=== PATIENT | male | born 1955 | race Caucasian/White ===

== ENCOUNTER 2021-05-12 07:04 | Day surgery (SDC) | payer MEDICARE, OTHER ==
[2021-05-09 15:57] LABS: BASOPHILS % (AUTO) 0.6 % (0-1); EOSINOPHILS # (AUTO) 0.1 X10'3 (0-0.9); EOSINOPHILS % (AUTO) 2.2 % (0-6); LYMPHOCYTES # (AUTO) 1.6 X10'3 (1.1-4.8); MEAN CORPUSCULAR HEMOGLOBIN 30.4 PG (27.0-31.0); MEAN CORPUSCULAR HGB CONC 33.8 g/dL (33.0-36.5); MEAN CORPUSCULAR VOLUME 89.9 FL (78-98); MEAN PLATELET VOLUME 7.5 FL (7.4-10.4); MONOCYTES # (AUTO) 0.4 X10'3 (0-0.9); MONOCYTES % (AUTO) 6.6 % (2-12); NEUTROPHILS # (AUTO) 3.2 X10'3 (1.8-7.7); NEUTROPHILS % (AUTO) 60.6 % (42-75); PRE OP HEMATOCRIT 47.3 % (42.0-52.0); PRE OP PLATELET COUNT 169 X10'3 (140-440); RED BLOOD COUNT 5.26 X10'6 (4.70-6.10); RED CELL DISTRIBUTION WIDTH 13.1 % (11.5-14.5)
[2021-05-09 16:26] LABS: ALBUMIN/GLOBULIN RATIO 1.3 (1.1-1.5); ALKALINE PHOSPHATASE 82 IU/L (46-116); BLOOD UREA NITROGEN 21 MG/DL (7-18); BUN/CREATININE RATIO 29.2 (5.4-32.0); CALCIUM 8.8 MG/DL (8.5-10.1); CHLORIDE 101 MMOL/L (99-107); CREATININE 0.72 MG/DL (0.60-1.10); PRE OP ALT 24 U/L (30-65); PRE OP ANION GAP 11 (8-16); PRE OP AST 18 U/L (10-37); PRE OP BILIRUB, TOTAL 1.8 MG/DL (0.0-1.0); PRE OP GLUCOSE 112 MG/DL (70-104); PRE OP POTASSIUM 3.8 MMOL/L (3.4-5.1); PRE OP SODIUM 139 MMOL/L (135-145); TOTAL CARBON DIOXIDE 27.4 MMOL/L (24-32); TOTAL PROTEIN 7.2 G/DL (6.4-8.2); eGFR > 90 ML/MIN
[~2021-05-12] VITALS: Ht 188 cm; Wt 86.4 kg
[~2021-05-12 07:04] MED LIST: NO HOME MEDS; cefazolin/dext.iso 2gm/50ml IV ONE; famotidine 20mg tablet PO ONE; ringers solution, lacted 1,000 ML IV SCH
[2021-05-12 07:15] VITALS: BP 134/80
[2021-05-12] MEDS ORDERED: LIDOcaine 1% (10mg/ml)w/preservative inj. 20ml MDV ONE ×2 (08:29→08:30)
[2021-05-12] MEDS ORDERED: BUPIVAcaine 0.5% inj/PF 30 ML ONE (08:29)
[2021-05-12] MEDS ORDERED: ondansetron/PF 4mg/2ml inj ONE ×2 (08:30→09:21)
[2021-05-12] MEDS ORDERED: propofol inj 20 ML IV ONE (08:30)
[2021-05-12] MEDS ORDERED: rocuronium 10mg/ml inj IV ONE (08:30)
[2021-05-12] MEDS ORDERED: LIDOcaine 2% (20mg/ml) 5ml vial ONE (08:30)
[2021-05-12] MEDS ORDERED: glycopyrrolate 0.2mg/ml inj ONE (08:31)
[2021-05-12] MEDS ORDERED: ringers solution, lacted 1,000 ML IV SCH (09:05)
[2021-05-12] MEDS ORDERED: morphine 4 MG/ML inj SYRINge IV PRN (09:05)
[2021-05-12] MEDS ORDERED: ondansetron/PF 4mg/2ml inj IV PRN (09:05)
[2021-05-12] MEDS ORDERED: hydrALAZINE 20mg/ml inj. IV PRN (09:05)
[2021-05-12] MEDS ORDERED: morphine 2 MG/ML inj. syringe IV PRN (09:05)
[2021-05-12] MEDS ORDERED: labetalol 20mg/4ml (5mg/ml) syringe IV PRN (09:05)
[2021-05-12] MEDS ORDERED: fentaNYL/PF 50MCG/1 ML 2ML syringe IV PRN ×2 (09:05)
[2021-05-12] MEDS ORDERED: dexamethasone sod phosphate 10mg/ml inj ONE (09:21)
[2021-05-12] MEDS ORDERED: sevoflurane 250ml liquid IH ONE (09:21)
[2021-05-12] MEDS ORDERED: desflurane 240ml liquid inh. IH ONE (09:21)
[2021-05-12] MEDS ORDERED: neostigmine methylsulfate 1 MG/ML 10ml vial ONE (09:21)
[2021-05-12] MEDS ORDERED: FENTANYL CITRATE/PF 50 MCG/1 ML VIAL ONE ×2 (09:32→09:33)
[2021-05-12 10:18] VITALS: BP 122/92
--- NOTE | 2021-05-12 10:18 | NUR ---
Received from OR via [facility] IN STABLE CONDITION , accompanied by Anesthesiologist and SPECIAL ED ASSISTANT report given by SPECIAL ED ASSISTANT AND Anesthesiolgist. Addendum: 05/12/21 at 1031 by Zeina Jeffrey RN Amended: Links added.
[2021-05-12 10:30] VITALS: BP 121/82
[2021-05-12 10:40] VITALS: BP 117/84
[2021-05-12] MEDS ORDERED: HYDROcodone/acetaminophen 5mg/325mg tablet PO PRN ×2 (10:45)
[2021-05-12 10:50] VITALS: BP 111/81
--- NOTE | 2021-05-12 11:08 | NUR ---
PATIENT DISCHARGED FROM PACU IN STABLE CONDITION AFTER WRITTEN AND VERBAL DISCHARGE INSTRUCTIONS GIVEN. PATIENT GAVE VERBAL UNDERSTANDING OF INSTRUCTIONS. PATIENT LEFT FACILITY VIA WHEELCHAIR WITH RN. Addendum: 05/12/21 at 1123 by Zeina Jeffrey RN Amended: Links added.
== END 2021-05-12 11:08 | disposition home or self-care (01) ==
LOC: PAS 07:04
PROVIDERS: ATTEND Surgery
DX: K42.0 Umbilical hernia with obstruction, without gangrene (principal); Z20.822 Contact with and (suspected) exposure to COVID-19; Z79.899 Other long term (current) drug therapy; Z85.47 Personal history of malignant neoplasm of testis; Z90.79 Acquired absence of other genital organ(s); Z72.89 Other problems related to lifestyle
CPT/HCPCS: 36415; 49587; 80053; 82948; 85025; 87635; C9803; J0690; J1100; J2405; J2704; J2710; J3010; J3490; J7030; J7120; S0020; Z7506; Z7512; A4618; A7000

== ENCOUNTER 2022-09-14 10:41 | Day surgery (SDC) | payer MEDICARE, OTHER ==
[2022-09-08 11:30] LABS: BASOPHILS % (AUTO) 0.4 % (0-1); EOSINOPHILS # (AUTO) 0.1 X10'3 (0-0.9); EOSINOPHILS % (AUTO) 1.8 % (0-6); LYMPHOCYTES # (AUTO) 1.7 X10'3 (1.1-4.8); LYMPHOCYTES % (AUTO) 28.8 % (21-51); MEAN CORPUSCULAR HGB CONC 33.4 g/dL (33.0-36.5); MEAN CORPUSCULAR VOLUME 89.9 FL (78-98); MEAN PLATELET VOLUME 7.4 FL (7.4-10.4); MONOCYTES # (AUTO) 0.3 X10'3 (0-0.9); MONOCYTES % (AUTO) 5.6 % (2-12); NEUTROPHILS # (AUTO) 3.9 X10'3 (1.8-7.7); NEUTROPHILS % (AUTO) 63.4 % (42-75); PRE OP HEMATOCRIT 43.9 % (42.0-52.0); PRE OP HEMOGLOBIN 14.7 g/dL (14.0-17.9); PRE OP PLATELET COUNT 171 X10'3 (140-440); RED BLOOD COUNT 4.89 X10'6 (4.70-6.10); RED CELL DISTRIBUTION WIDTH 13.7 % (11.5-14.5)
[2022-09-08 11:50] LABS: ALBUMIN 3.8 G/DL (3.4-5.0); ALBUMIN/GLOBULIN RATIO 1.3 (1.1-1.5); ALKALINE PHOSPHATASE 91 IU/L (46-116); BLOOD UREA NITROGEN 23 MG/DL (7-18); BUN/CREATININE RATIO 32.4 (10.0-20.0); CALCIUM 8.9 MG/DL (8.5-10.1); CHLORIDE 103 MMOL/L (99-107); CREATININE 0.71 MG/DL (0.60-1.10); PRE OP ALT 36 U/L (30-65); PRE OP ANION GAP 6 (8-16); PRE OP AST 25 U/L (10-37); PRE OP BILIRUB, TOTAL 1.1 MG/DL (0.0-1.0); PRE OP GLUCOSE 92 MG/DL (70-104); PRE OP POTASSIUM 4.1 MMOL/L (3.4-5.1); PRE OP SODIUM 137 MMOL/L (135-145); TOTAL CARBON DIOXIDE 28.3 MMOL/L (24-32); TOTAL PROTEIN 6.8 G/DL (6.4-8.2); eGFR > 90 ML/MIN
[~2022-09-14] VITALS: Ht 188 cm; Wt 81.2 kg
[2022-09-14] VITALS (12 sets, daily range): BP systolic 118–143; BP diastolic 83–96; PULSE 65–76; RESP 10–19; TEMP 97.7; O2SAT 96–100
[~2022-09-14 10:41] MED LIST changes: +ASCO-139 PO; +MULT-1120 PO; -NO HOME MEDS; +SILD50TA PO; +cefazolin 2gm/D5W 100mL 100 ML IV ONE; -cefazolin/dext.iso 2gm/50ml IV ONE
[2022-09-14] MEDS ORDERED: morphine 2 MG/ML inj. syringe IV PRN (12:25)
[2022-09-14] MEDS ORDERED: ondansetron/PF 4mg/2ml inj IV PRN (12:25)
[2022-09-14] MEDS ORDERED: proCHLORperazine 10 MG/2 ml inj IV PRN (12:25)
[2022-09-14] MEDS ORDERED: meperidine/PF 25mg/ml syringe IV PRN ×3 (12:25)
[2022-09-14] MEDS ORDERED: ringers solution, lacted 1,000 ML IV SCH (12:25)
[2022-09-14] MEDS ORDERED: morphine 4 MG/ML inj SYRINge IV PRN (12:25)
[2022-09-14] MEDS ORDERED: BUPIVAcaine/PF 2.5 mg/ml (0.25%) 30ml vial ONE (13:23)
[2022-09-14] MEDS ORDERED: LIDOcaine 1% 30ml preserv. free vial ONE (13:23)
[2022-09-14] MEDS ORDERED: fentaNYL/PF 50MCG/1 ML 2ML syringe ONE (13:28)
[2022-09-14] MEDS ORDERED: sevoflurane 250ml liquid IH ONE (13:28)
[2022-09-14] MEDS ORDERED: midazolam 1 mg/ML 2ml injection ONE (13:29)
[2022-09-14] MEDS ORDERED: propofol inj 20 ML IV ONE (13:29)
[2022-09-14] MEDS ORDERED: rocuronium 10mg/ml inj IV ONE (13:29)
[2022-09-14] MEDS ORDERED: glycopyrrolate 0.2mg/ml inj ONE (14:26)
[2022-09-14] MEDS ORDERED: neostigmine methylsulfate 1 MG/ML 10ml vial ONE (14:26)
[2022-09-14] MEDS ORDERED: dexamethasone sod phosphate 4mg/ml inj. ONE (14:27)
[2022-09-14] MEDS ORDERED: ondansetron/PF 4mg/2ml inj ONE (14:27)
--- NOTE | 2022-09-14 14:43 | NUR ---
Received from OR via [facility] IN STABLE CONDITION , accompanied by Anesthesiologist and DIVISION OPERATIONS SPECIALIST report given by DIVISION OPERATIONS SPECIALIST AND Anesthesiolgist. Addendum: 09/14/22 at 1456 by Zeina Jeffrey RN Amended: Links added.
[2022-09-14] MEDS ORDERED: HYDROcodone/acetaminophen 5mg/325mg tablet PO PRN (14:55)
--- NOTE | 2022-09-14 16:43 | NUR ---
PATIENT DISCHARGED FROM PACU IN STABLE CONDITION AFTER WRITTEN AND VERBAL DISCHARGE INSTRUCTIONS GIVEN. PATIENT GAVE VERBAL UNDERSTANDING OF INSTRUCTIONS GIVEN. PATIENT LEFT FACILITY VIA WHEELCHAIR WITH RN. Addendum: 09/14/22 at 1653 by Zeina Jeffrey RN Amended: Links added.
== END 2022-09-14 16:43 | disposition home or self-care (01) ==
LOC: PAS 10:41
PROVIDERS: ATTEND Surgery
DX: K40.90 Unilateral inguinal hernia, without obstruction or gangrene, not specified as recurrent (principal); G47.30 Sleep apnea, unspecified; Z79.899 Other long term (current) drug therapy; Z87.01 Personal history of pneumonia (recurrent); Z85.47 Personal history of malignant neoplasm of testis; Z98.890 Other specified postprocedural states; Z72.89 Other problems related to lifestyle; Z90.79 Acquired absence of other genital organ(s)
CPT/HCPCS: 36415; 49650; 80053; 82948; 85025; 93005; C1781; J0690; J1100; J2250; J2405; J2704; J2710; J3010; J3490; J7030; J7120; Z7506; Z7508; Z7512; A4215; A4618